=== PATIENT | female | born 1985 | race Caucasian/White ===

== ENCOUNTER 2021-04-01 12:02 | Outpatient (CLI) | payer OTHER, MEDICAID ==
[2021-04-01 21:13] LABS: SARS-CoV-2 PCR by NAA Not Detected (NotDetected)
== END 2021-04-01 12:03 | disposition home or self-care (01) ==
LOC: CSHLAB 12:02
PROVIDERS: ATTEND Student in an Organized Health Care Education/Training Program
DX: Z01.812 Encounter for preprocedural laboratory examination (principal); Z20.822 Contact with and (suspected) exposure to COVID-19
CPT/HCPCS: U0003; U0005

== ENCOUNTER 2021-04-05 05:30 | Inpatient (IN) | payer MEDICAID, OTHER ==
[2021-04-05] MEDS ORDERED: Bupivacaine 0.25% HCL 30 ML VIAL ONE (06:00)
[2021-04-05] MEDS ORDERED: Misoprostol 200 MCG TAB PR PRN (06:07)
[2021-04-05] MEDS ORDERED: HYDROcodone/Acetaminophen 5/325 mg Tablet PO PRN ×3 (06:07→21:33)
[2021-04-05] MEDS ORDERED: Diphenoxylate HCl/Atropine Tablet PO PRN (06:07)
[2021-04-05] MEDS ORDERED: NS w/ Oxytocin 30 units 500 ML IVPB SCH (06:07)
[2021-04-05] MEDS ORDERED: Butorphanol Tartrate 1 MG/ML VIAL SLOW IVP PRN (06:07)
[2021-04-05] MEDS ORDERED: Promethazine HCl 25 MG/ML VIAL IM PRN ×3 (06:07→21:33)
[2021-04-05] MEDS ORDERED: Ibuprofen 800 MG TAB PO PRN (06:07)
[2021-04-05] MEDS ORDERED: Ondansetron PF 4 MG/2 ML Vial IVP PRN ×3 (06:07→21:33)
[2021-04-05] MEDS ORDERED: Lidocaine 1% (PF) 30 ML VIAL SC PRN (06:07)
[2021-04-05] MEDS ORDERED: Methylergonovine 0.2 MG/ML VIAL IM PRN (06:07)
[2021-04-05] MEDS ORDERED: hydrALAZINE 20 MG/ML VIAL SLOW IVP PRN ×2 (06:07→21:33)
[2021-04-05] MEDS ORDERED: NS w/ Oxytocin 30 units 500 ML IV SCH (06:07)
[2021-04-05] MEDS ORDERED: Carboprost 250 MCG/ML AMP IM PRN (06:07)
[2021-04-05] MEDS ORDERED: Acetaminophen 500 MG TAB PO PRN (06:07)
[2021-04-05] MEDS: Lactated Ringer's 1,000 ML IV SCH ×3 (06:51→14:42)
[2021-04-05 07:11] LABS: Hemoglobin 13.5 g/dL (12.0-15.5); Mean Corpuscular Hemoglobin 31.2 pg (27.0-33.0); Mean Corpuscular Volume 91.7 fl (81.6-98.3); Mean Platelet Volume 11.1 fl (7.4-10.4); Platelet Count 240 10x3/uL (150-450); RBC Distribution Width 16.2 % (11.5-14.5); Red Blood Cell (RBC) Count 4.33 10x6/uL (3.90-5.03); White Blood Cell (WBC) Count 10.6 10x3/uL (3.5-10.5)
[2021-04-05 07:34] VITALS: BMI 38.4
[2021-04-05 07:39] LABS: Hep B Surf Ag Non-Reactive S/CO (NonReactive); Syphilis Antibody Nonreactive (Nonreactive); Syphilis Antibody Index 0.05 S/CO (<1.00 Non-Reactive)
[2021-04-05 07:40] LABS: HBSAg Index 0.18 S/CO (0-0.99)
[2021-04-05] MEDS ORDERED: Fentanyl 2 mcg/Bup 0.1% Cadd 100 ML ONE (13:41)
[2021-04-05] MEDS ORDERED: Naloxone HCl 0.4 mg/ml Vial IVP PRN ×2 (14:31)
[2021-04-05] MEDS ORDERED: ePHEDrine Sulfate 50 MG/10 ML VIAL SLOW IVP PRN (14:31)
[2021-04-05] MEDS ORDERED: Acetaminophen 325 MG TAB PO PRN (14:31)
[2021-04-05] MEDS ORDERED: Hydrocerin (Eucerin) Cream 120 gm Jar TOP PRN (14:31)
[2021-04-05] MEDS ORDERED: Lactated Ringer's 500 ML IV PRN (14:31)
[2021-04-05] MEDS ORDERED: diphenhydrAMINE 50 MG/ML VIAL IVP PRN (14:31)
[2021-04-05] MEDS ORDERED: Fentanyl 2 mcg/Bupivacaine 0.1% Cassette 100 ML EPIDURAL SCH (14:45)
[2021-04-05] MEDS ORDERED: Communication Order-Pharmacy FS SCH (14:45)
[2021-04-05] MEDS ORDERED: Misoprostol 200 MCG TAB ONE (18:16)
[2021-04-05] MEDS ORDERED: Carboprost 250 MCG/ML AMP ONE (18:17)
[2021-04-05] MEDS ORDERED: Methylergonovine 0.2 MG/ML VIAL ONE (18:17)
[2021-04-05] MEDS ORDERED: Tranexamic Acid 1,000 MG/10 ML VIAL ONE (18:18)
[2021-04-05] MEDS ORDERED: Benzocaine-Menthol 82.5 ML CAN TOP PRN (21:33)
[2021-04-05] MEDS ORDERED: Lanolin Ointment 7 GM TUBE TOP PRN (21:33)
[2021-04-05] MEDS ORDERED: Boostrix 0.5 ML (Tdap) VIAL IM ONE (21:33)
[2021-04-05] MEDS ORDERED: Preparation H Ointment 28 GM TUBE PR PRN (21:33)
[2021-04-05] MEDS ORDERED: Milk Of Magnesia 30 ML UDCUP PO PRN (21:33)
[2021-04-05] MEDS ORDERED: diphenhydrAMINE 25 MG CAP PO PRN (21:33)
[2021-04-05] MEDS ORDERED: Bisacodyl 10 MG SUPP PR PRN (21:33)
[2021-04-05] MEDS: Ibuprofen 800 MG TAB PO SCH (22:16)
[2021-04-06] MEDS: Ibuprofen 800 MG TAB PO SCH ×2 (05:42→15:22)
[2021-04-06] MEDS: Ferrous Sulfate 325 MG TAB PO SCH ×2 (07:46→17:10)
[2021-04-06] MEDS ORDERED: Prenatal Vitamin 1 TAB PO SCH (09:00)
[2021-04-06] MEDS ORDERED: Docusate Calcium (SURFAK) 240 MG CAP PO SCH (09:00)
[2021-04-06 18:16] VITALS: BP 121/80; TEMP 98.3
== END 2021-04-06 20:45 | disposition home or self-care (01) | DRG 807 ==
LOC: CSHLD 05:46 → CSHPP 21:20
PROVIDERS: ADMIT Student in an Organized Health Care Education/Training Program; ATTEND Student in an Organized Health Care Education/Training Program
PROC: 10E0XZZ Delivery of Products of Conception, External Approach (ICD-10-PCS; principal; 2021-04-05)
PROC: 3E033VJ Introduction of Other Hormone into Peripheral Vein, Percutaneous Approach (ICD-10-PCS; 2021-04-05)
DX: O24.415 Gestational diabetes mellitus in pregnancy, controlled by oral hypoglycemic drugs (principal); Z37.0 Single live birth; Z3A.38 38 weeks gestation of pregnancy; O69.81X0 Labor and delivery complicated by cord around neck, without compression, not applicable or unspecified; O40.3XX0 Polyhydramnios, third trimester, not applicable or unspecified
CPT/HCPCS: 36415; 36416; 85027; 86780; 86850; 86900; 86901; 87340; J2405; J2590; J7120; S0020

== ENCOUNTER 2021-05-20 16:25 | Outpatient (CLI) | payer OTHER | END 2021-05-20 16:26 | disposition home or self-care (01) | LOC: CSHLAB 16:25 | PROVIDERS: ATTEND Student in an Organized Health Care Education/Training Program | DX: Z01.812 Encounter for preprocedural laboratory examination (principal); Z20.822 Contact with and (suspected) exposure to COVID-19; Z80.3 Family history of malignant neoplasm of breast | CPT/HCPCS: 84703; 85027; 86850; 86900; 86901; U0003; U0005 ==

== ENCOUNTER 2021-05-24 11:07 | Day surgery (SDC) | payer OTHER ==
[2021-05-20 11:11] VITALS: BMI 31.8
[2021-05-20 18:15] LABS: Mean Corpuscular HGB CONC 34.2 g/dL (32.0-36.0); Mean Corpuscular Hemoglobin 30.9 pg (27.0-33.0); Mean Corpuscular Volume 90.5 fl (81.6-98.3); Mean Platelet Volume 10.2 fl (7.4-10.4); Platelet Count 291 10x3/uL (150-450); RBC Distribution Width 14.2 % (11.5-14.5); Red Blood Cell (RBC) Count 5.17 10x6/uL (3.90-5.03); White Blood Cell (WBC) Count 10.6 10x3/uL (3.5-10.5)
[2021-05-20 18:24] LABS: BHCG - Serum Negative (NEGATIVE); Pregs Control Background? CLEAR/WHITE (CLR/WHITE); Pregs Control Bar Appear? YES (CONTROL BAR)
[2021-05-21 18:15] LABS: SARS-CoV-2 PCR by NAA Not Detected (NotDetected)
[2021-05-24] MEDS ORDERED: CeleCOXIB 100 MG CAP ONE (12:30)
[2021-05-24] MEDS ORDERED: Lidocaine 1% MPF 2 ML VIAL ONE (12:31)
[2021-05-24] MEDS ORDERED: EPINEPHrine 1 MG/ML AMP ONE (13:34)
[2021-05-24] MEDS ORDERED: Bupivacaine PF 0.5% 30 ML VIAL ONE (13:34)
[2021-05-24] MEDS ORDERED: Fentanyl 100 MCG/2 ML VIAL ONE (14:12)
[2021-05-24] MEDS ORDERED: Ketorolac Tromethamine 30 MG/ML VIAL ONE (14:53)
[2021-05-24] MEDS ORDERED: Lidocaine 2% PF 5 ML VIAL ONE (14:53)
[2021-05-24] MEDS ORDERED: PROPOFOL 20 ML ONE (14:53)
[2021-05-24] MEDS ORDERED: Rocuronium Bromide 10 MG/ML (10ML VIAL) ONE (14:53)
[2021-05-24] MEDS ORDERED: Dexamethasone 4 mg/ml Vial ONE (14:53)
[2021-05-24] MEDS ORDERED: Ondansetron PF 4 MG/2 ML Vial ONE (14:54)
[2021-05-24] MEDS ORDERED: Meperidine HCl/PF 25 MG/ML VIAL ONE (15:12)
== END 2021-05-24 16:45 | disposition home or self-care (01) ==
LOC: CSHSDC 11:07
PROVIDERS: ATTEND Student in an Organized Health Care Education/Training Program
PROC: 0UT74ZZ Resection of Bilateral Fallopian Tubes, Percutaneous Endoscopic Approach (ICD-10-PCS; principal; 2021-05-24)
DX: Z30.2 Encounter for sterilization (principal); N83.292 Other ovarian cyst, left side; Z80.3 Family history of malignant neoplasm of breast; Z79.84 Long term (current) use of oral hypoglycemic drugs; Z20.822 Contact with and (suspected) exposure to COVID-19
CPT/HCPCS: 84703; 85027; 86850; 86900; 86901; 88302; J0171; J0690; J1100; J1885; J2001; J2175; J2405; J2704; J3010; S0020; U0003; U0005

== ENCOUNTER 2021-06-21 21:08 | Emergency (ER) | payer OTHER ==
[2021-06-21 23:05] LABS: Hemoglobin 15.7 g/dL (12.0-15.5); Mean Corpuscular HGB CONC 34.1 g/dL (32.0-36.0); Mean Corpuscular Hemoglobin 31.4 pg (27.0-33.0); Mean Platelet Volume 10.4 fl (7.4-10.4); Platelet Count 310 10x3/uL (150-450); RBC Distribution Width 13.8 % (11.5-14.5); White Blood Cell (WBC) Count 14.4 10x3/uL (3.5-10.5)
[2021-06-21 23:36] LABS: MDiff Complete? YES
[2021-06-21 23:45] LABS: Band 3 % (5-11); Eosinophils 4 % (0-10); Lymphocytes 24 % (21-51); Monocytes 11 % (0-10); Neutrophil 46 % (42-75); Reactive Lymphocytes 12 % (0-10)
[2021-06-21 23:47] LABS: Platelet Morphology Comment Appears Adequate; RBC Morphology Normal
[2021-06-21 23:48] LABS: Reflex for Review?? YES
== END 2021-06-22 00:27 | disposition home or self-care (01) ==
LOC: CSHERS 21:08
DX: N93.9 Abnormal uterine and vaginal bleeding, unspecified (principal); F17.210 Nicotine dependence, cigarettes, uncomplicated
CPT/HCPCS: 85025; 85060; 99284

== ENCOUNTER 2021-12-04 17:22 | Emergency (ER) | payer OTHER | END 2021-12-04 19:34 | disposition home or self-care (01) | LOC: CSHERS 17:22 | DX: M25.572 Pain in left ankle and joints of left foot (principal); F17.210 Nicotine dependence, cigarettes, uncomplicated; W19.XXXA Unspecified fall, initial encounter ==

== ENCOUNTER 2022-07-29 18:47 | Emergency (ER) | payer OTHER ==
[2022-07-29 20:01] LABS: Bilirubin Neg (Negative); Blood, Urine 250 (Negative); Clarity Slightly Cloudy (Clear); Glucose, Urine (Dipstick) Normal (Negative); Ketone, Urine Negative (Negative); Leukocyte 25 (Negative); Nitrite Negative (Negative); Protein, Urine (Dipstick) 30 mg/dl (Neg-Trace); Specific Gravity, Urine 1.025 (1.005-1.030); Urobilinogen Normal mg/dL (Less than 2)
[2022-07-29] MEDS ORDERED: Ketorolac Tromethamine 30 MG/ML VIAL ONE (20:02)
[2022-07-29 20:22] LABS: RBC/HPF Greater than 50 HPF (0-3); WBC/HPF 0-3 HPF (0-3)
[2022-07-29 20:23] LABS: Bacteria/HPF Rare-Few HPF (None Seen)
[2022-07-29 20:26] LABS: Pregnancy Test - Urine (BHCG) Negative (Negative)
[2022-07-29 20:27] LABS: Pregu Control Background? CLEAR/WHITE (CLR/WHITE); Pregu Control Bar Appear? YES (CONTROL BAR); Specific Gravity 1.025 (1.002-1.036)
== END 2022-07-29 22:07 | disposition home or self-care (01) ==
LOC: CSHERS 18:47
DX: N20.0 Calculus of kidney (principal); F17.210 Nicotine dependence, cigarettes, uncomplicated
CPT/HCPCS: 81003; 81015; 81025; 96374; J1885

== ENCOUNTER 2022-07-30 03:15 | Emergency (ER) | payer OTHER ==
[2022-07-30] MEDS ORDERED: Morphine 4 MG/ML VIAL ONE (03:30)
[2022-07-30] MEDS ORDERED: Ondansetron PF 4 MG/2 ML Vial ONE (03:31)
[2022-07-30 03:35] LABS: #Basophils 0.1 10x3/uL (0.0-0.2); #Eosinphils 0.2 10x3/uL (0.0-0.5); #Monocytes 1.3 10x3/uL (0.0-1.1); %Basophils 0.6 % (0.0-2.0); %Eosinophils 0.9 % (0.0-6.0); %Lymphocytes 19.9 % (18.0-47.0); %Monocytes 7.6 % (0.0-10.0); %Neutrophils 70.6 % (40.0-75.0); Hemoglobin 13.6 g/dL (12.0-15.5); Mean Corpuscular HGB CONC 32.8 g/dL (32.0-36.0); Mean Corpuscular Hemoglobin 25.8 pg (27.0-33.0); Mean Corpuscular Volume 78.7 fl (81.6-98.3); Mean Platelet Volume 10.4 fl (7.4-10.4); Platelet Count 438 10x3/uL (150-450); RBC Distribution Width 16.3 % (11.5-14.5); Red Blood Cell (RBC) Count 5.27 10x6/uL (3.90-5.03)
[2022-07-30 03:46] LABS: ALT (SGPT) 14 U/L (8-55); AST (SGOT) 14 U/L (5-34); Albumin 4.3 g/dL (3.5-5.0); Alkaline Phosphatase 72 U/L (40-110); Anion Gap 17 mmol/L (10-20); BUN (Urea Nitrogen) 16 mg/dL (7.0-18.7); Bilirubin, Total 0.4 mg/dL (0.2-1.2); Calc. Creatinine Clearance 0 mL/min (70-130); Calcium 9.6 mg/dL (7.8-10.44); Carbon Dioxide 23 mmol/L (22-29); Chloride 105 mmol/L (98-107); Estimated GFR 94; Globulin 2.9 g/dL (2.4-3.5); Glucose 98 mg/dL (70-105); Lipase 41 U/L (8-78); Potassium 3.6 mmol/L (3.5-5.1); Protein, Total 7.2 g/dL (6.0-8.3); Sodium 141 mmol/L (136-145)
== END 2022-07-30 05:35 | disposition home or self-care (01) ==
LOC: CSHERS 03:15
DX: N13.2 Hydronephrosis with renal and ureteral calculous obstruction (principal); F17.210 Nicotine dependence, cigarettes, uncomplicated
CPT/HCPCS: 74177; 80053; 81003; 81015; 81025; 83690; 85025; 96361; 96374; 96375; J1885; J2270; J2405

== ENCOUNTER 2022-08-15 14:31 | Outpatient (CLI) | payer OTHER | END 2022-08-15 14:32 | disposition home or self-care (01) | LOC: CSHRAD 14:31 | PROVIDERS: ATTEND Urology | DX: N20.1 Calculus of ureter (principal); N28.89 Other specified disorders of kidney and ureter | CPT/HCPCS: 74018 ==